=== PATIENT | female | born 1985 | race Two or more races ===

== ENCOUNTER 2023-05-30 08:39 | Outpatient (CLI) | payer OTHER | END 2023-05-30 08:42 | disposition home or self-care (01) | LOC: LAB 08:39 | DX: H05.20 Unspecified exophthalmos (principal) ==

== ENCOUNTER 2024-02-26 10:08 | Outpatient (CLI) | payer OTHER | END 2024-02-26 15:26 | disposition home or self-care (01) | LOC: TOM 10:08 | PROVIDERS: ATTEND Family Medicine | DX: R05.3 Chronic cough (principal); J32.1 Chronic frontal sinusitis; J39.9 Disease of upper respiratory tract, unspecified ==

== ENCOUNTER → 2024-07-26 | Emergency (ER) | payer OTHER | END | disposition left against medical advice (07) | LOC: ER 19:19 | DX: Z53.21 Procedure and treatment not carried out due to patient leaving prior to being seen by health care provider (principal) ==

== ENCOUNTER 2025-06-18 09:30 | Outpatient (CLI) | payer OTHER | END 2025-06-18 09:32 | disposition home or self-care (01) | LOC: SONOGRAMA 09:30 | PROVIDERS: ATTEND Pathology Anatomic Pathology | DX: E04.2 Nontoxic multinodular goiter (principal) ==